=== PATIENT | female | born 1980 | race Caucasian/White ===

== ENCOUNTER → 2017-02-14 | Outpatient (CLI) | payer OTHER ==
[~2017-02-14] VITALS: Ht 157.5 cm; Wt 89.1 kg
[~2017-02-14] MED LIST: BUSPAR; ESCITALOPRAM; IMITREX100 MG PO; IMITREX50 MG PO; PRENATAL TABLE1 EAC3 PO; PROMETHAZINE HC25 M1 PO; SKELAXIN800 MG PO; SPRINTEC1 EACH PO
[2017-02-14 17:24] VITALS: BP 119/83
== END | disposition home or self-care (01) ==
LOC: IVINF 16:50
DX: Z31.82 Encounter for Rh incompatibility status (principal); Z3A.28 28 weeks gestation of pregnancy; Z67.11 Type A blood, Rh negative
CPT/HCPCS: 96372

== ENCOUNTER 2017-04-27 05:40 | Inpatient (IN) | payer OTHER ==
[~2017-04-27] VITALS: Ht 157.5 cm; Wt 98.9 kg
[2017-04-27] VITALS (9 sets, daily range): BP systolic 121–151; BP diastolic 82–98
[2017-04-27 07:58] LABS: BASOPHIL (%) 0.2 % (0-1); EOSINOPHIL (%) 0.9 % (0-5); EOSINOPHIL COUNT 0.1 K/uL (0-0.3); HEMATOCRIT 37.9 % (36.0-46.0); HEMOGLOBIN 12.8 G/DL (11.9-15.5); IMMATURE GRANULOCYTE (%) 1.8 % (0.0-0.7); LYMPHOCYTE (%) 16.8 % (15-42); LYMPHOCYTE COUNT 1.4 K/uL (1.0-2.8); MCHC 33.8 G/DL (30.0-36.0); MCV 85.9 FL (83-99); MONOCYTE (%) 7.7 % (3-12); MONOCYTE COUNT 0.7 K/uL (0-0.8); NEUTROPHIL (%) 72.6 % (45-76); NEUTROPHIL COUNT 6.1 K/uL (1.8-6.4); PLATELET COUNT 342 K/uL (156-360); RBC DIS.WIDTH-CV 13.4 % (11.8-14.6); RBC DIS.WIDTH-SD 41.9 % (39-53); RED BLOOD COUNT 4.41 M/uL (3.80-5.20); WHITE BLOOD COUNT 8.5 K/uL (4.1-10.2)
[2017-04-27 08:18] LABS: ALBUMIN 3.1 G/DL (3.2-4.8); CHLORIDE 105 MEQ/L (99-109); POTASSIUM 4.2 MEQ/L (3.7-5.4); SODIUM 139 MEQ/L (136-147); TOTAL BILIRUBIN 0.3 MG/DL (0.0-1.0)
[2017-04-27 08:24] LABS: ALKALINE PHOSPHATASE 99 IU/L (3-129); ALT (GPT) 9 IU/L (3-49); AST (GOT) 16 IU/L (2-34); CREATININE 0.6 MG/DL (0.6-1.3); GFR ESTIMATE (CALCULATED) > 59 mL/min/; GLUCOSE 74 mg/dL (70-99); UREA NITROGEN (BUN) 8 mg/dL (9-23)
[2017-04-28 02:27] VITALS: BP 110/70
[2017-04-28 06:35] LABS: BASOPHIL (%) 0.2 % (0-1); EOSINOPHIL (%) 0.5 % (0-5); EOSINOPHIL COUNT 0.1 K/uL (0-0.3); HEMATOCRIT 28.7 % (36.0-46.0); LYMPHOCYTE (%) 12.4 % (15-42); LYMPHOCYTE COUNT 1.7 K/uL (1.0-2.8); MCH 29.7 PG (29.0-34.0); MCHC 33.8 G/DL (30.0-36.0); MCV 87.8 FL (83-99); MONOCYTE (%) 7.5 % (3-12); NEUTROPHIL (%) 78.4 % (45-76); NEUTROPHIL COUNT 10.5 K/uL (1.8-6.4); PLATELET COUNT 268 K/uL (156-360); RBC DIS.WIDTH-CV 13.5 % (11.8-14.6); WHITE BLOOD COUNT 13.4 K/uL (4.1-10.2)
[2017-04-28 06:38] LABS: HEMOGLOBIN 9.7 G/DL (11.9-15.5); RED BLOOD COUNT 3.27 M/uL (3.80-5.20)
[2017-04-28 08:08] VITALS: BP 110/67
[2017-04-28 12:55] VITALS: BP 121/77
[2017-04-28 15:17] VITALS: BP 126/74
[2017-04-28 19:19] VITALS: BP 123/73
[2017-04-28 22:41] VITALS: BP 126/84
[2017-04-29 03:02] VITALS: BP 119/69
[2017-04-29 22:50] VITALS: BP 133/92
[2017-04-30 07:49] VITALS: BP 132/82
[2017-04-30] MEDS ORDERED: IBUPROFEN800 MG PO (07:55)
[2017-04-30] MEDS ORDERED: ENDOCET 5-3251 EACH PO (07:55)
== END 2017-04-30 14:55 | disposition home or self-care (01) | DRG 765 ==
LOC: 2WEST 05:40 → 2SOUTH 09:20 → 2WEST 04-30 14:55
PROVIDERS: Obstetrics & Gynecology Obstetrics
PROC: 10D00Z1 Extraction of Products of Conception, Low, Open Approach (ICD-10-PCS; principal; 2017-04-27)
DX: O32.1XX0 Maternal care for breech presentation, not applicable or unspecified (principal); O36.0930 Maternal care for other rhesus isoimmunization, third trimester, not applicable or unspecified; Z37.0 Single live birth; Z3A.39 39 weeks gestation of pregnancy; F41.9 Anxiety disorder, unspecified; O99.344 Other mental disorders complicating childbirth; O99.214 Obesity complicating childbirth; E66.9 Obesity, unspecified; Z68.33 Body mass index [BMI] 33.0-33.9, adult
CPT/HCPCS: 36415; 80053; 82570; 84156; 85025; 86850; 86900; 86901; 87641; J0690; J1100; J1170; J2270; J2274; J2405; J7120